=== PATIENT | female | born 1980 | race Caucasian/White ===

== ENCOUNTER 2017-03-11 09:36 | Day surgery (SDC) | payer OTHER ==
[2017-03-07 16:06] VITALS: BMI 32.9
--- NOTE | 2017-03-11 08:10 | HP ---
History & Physical Update - History History: No Change - Physical Physical: No Change - Assessment Assessment: No Change - Plan Plan: No Change
[~2017-03-11 09:36] MED LIST: IBUPROFEN 400 MG TABLET (FP) PO PRN; IBUPROFEN 800 MG/8 ML IJ IVPB PRN; LACTATED RINGERS SOLUTION 1,000 ML IV SCH
[2017-03-11] MEDS ORDERED: IBUPROFEN 800 MG/8 ML IJ IVPB ONE (10:06)
[2017-03-11] MEDS ORDERED: ACETAMINOPHEN INJECTION 100 ML IVPB ONE (10:07)
[2017-03-11] MEDS ORDERED: MIDAZOLAM HCL 2 MG/2 ML SINGLE DOSE VIAL ONE (10:27)
[2017-03-11] MEDS ORDERED: BUPIVACAINE HCL/PF 0.5% (5MG/ML) 10 ML VIAL ONE (10:27)
[2017-03-11] MEDS ORDERED: PROPOFOL 20 ML ONE (10:28)
[2017-03-11] MEDS ORDERED: ROCURONIUM BROMIDE 50 MG/5 ML VIAL ONE (11:53)
[2017-03-11] MEDS ORDERED: ePHEDrine SULFATE 50 MG/1 ML AMPULE ONE (12:02)
[2017-03-11] MEDS ORDERED: DEXAMETHASONE SOD PHOSPHATE 4 MG/1 ML VIAL ONE ×2 (12:18→12:19)
[2017-03-11] MEDS ORDERED: GLYCOPYRROLATE 0.2 MG/1 ML VIAL ONE (12:26)
[2017-03-11] MEDS ORDERED: NEOSTIGMINE METHYLSULFATE 0.5 MG/ML - 10 ML MDV ONE (12:26)
[2017-03-11] MEDS ORDERED: BUPIVACAINE HCL/PF 0.5% (5MG/ML) 10 ML VIAL IJ ONE (12:30)
--- NOTE | 2017-03-11 12:41 | OP ---
Operative Note - Note: Operative Date: 03/11/17 Pre-Operative Diagnosis: Elective sterilization Operation: Laparoscopic bilateral salpingectomy Post-Operative Diagnosis: Same as Pre-op Surgeon: Nina Burrell Call Center Analyst: Armando Silver Anesthesiologist/TILE SHADER: Sarbjit Mosqueda Anesthesia: General Specimens Removed: bilateral tubes Estimated Blood Loss (mls): 5 Fluid Volume Replaced (mls): 500
--- NOTE | 2017-03-11 12:42 | SURG ---
Surgery Auto Haulaway Driver Note Auto Haulaway Driver: Armando Silver PA-C Date of Service: 03/11/17 Diagnosis: Elective sterilization Procedure: Laparoscopic bilateral salpingectomy I was present for the entirety of the operative procedure. For further detail, please refer to operative report. Visit type - Case Type Case Type: Scheduled Admission - New patient This patient is new to me today: Yes Date on this admission: 03/11/17
[2017-03-11] MEDS ORDERED: ONDANSETRON 4 MG/2 ML VIAL IVPUSH PRN (12:51)
[2017-03-11] MEDS ORDERED: IBUPROFEN 400 MG TABLET (FP) PO ONE ×2 (15:24→15:25)
[2017-03-11 16:08] VITALS: BP 101/59; PULSE 60; TEMP 97.8
--- NOTE | 2017-03-12 09:24 | OP ---
DATE OF OPERATION: 03/11/2017 PREOPERATIVE DIAGNOSIS: Multiparity, voluntary sterilization. OPERATION: Laparoscopic bilateral salpingectomy. POSTOPERATIVE DIAGNOSES: Multiparity, voluntary sterilization and normal tubes and ovaries. SURGEON: César Blank MD PLANT PROTECTION GUARD: SULEMA Ken; unavailable. ANESTHESIA: General. ANESTHESIOLOGIST: Rhett Espinoza MD DESCRIPTION OF PROCEDURE: Patient was taken to the operating room and placed in dorsal lithotomy position, prepped and draped in the usual sterile fashion. A timeout was performed in accordance with hospital regulation. A Holloway catheter was inserted into the bladder. Umbilical incision was made with a scalpel. A Veress needle was inserted into the abdomen. Approximately 3-4 L of CO2 were insufflated within the abdomen. Veress needle was then removed, and a 5-mm trocar was inserted. Laparoscope and camera were attached. Visualization revealed normal tubes and ovaries. Two lower abdominal incisions on the left and right were made, and trocars were inserted under direct visualization. Grasper and LigaSure were attached, visualization. The right tube was grasped, and cautery and cutting of the fallopian tube on the right were done. Specimen was submitted to Pathology. Left tube was then grasped, and cautery and cutting of the left tube were done. Specimen was submitted to Pathology. All CO2 was removed. Incision was then closed using 4-0 Biosyn suture. After hemostasis was established, instrument count was correct. All instruments were removed. CO2 was removed from the abdomen. The incisions were then closed using 4-0 Biosyn suture in subcuticular fashion. Wound was washed and dressed. The patient had tolerated the procedure well. ESTIMATED BLOOD LOSS: 5 mL CÉSAR BLANK M.D. [id number]
--- NOTE | 2017-03-12 13:25 | PATH ---
Surgical Pathology Report Patient Name: HUEY JENKINS Med. Rec. #: [id number] /Age/Gender: 1980 (Age: 36) / F Account: [id number] Location: [facility] SUR[facility]ICAL Taken: 03/11/2017 Received: 03/11/2017 Reported: 03/12/2017 Physicians: Nina Burrell M.D. Specimen(s) Received A: RIGHT FALLOPIAN TUBE B: LEFT FALLOPIAN TUBE Clinical History Voluntary sterilization Final Diagnosis A. FALLOPIAN TUBE, RIGHT, SALPINGECTOMY: FIMBRIATED FALLOPIAN TUBE WITH COMPLETE CROSS SECTION. B. FALLOPIAN TUBE, LEFT, SALPINGECTOMY: FIMBRIATED FALLOPIAN TUBE WITH COMPLETE CROSS SECTION. Electronically Signed Anthony Andrade M.D. Gross Description A. Received in formalin labeled "right fallopian tube" is a 5.5 cm in length fimbriated portion of fallopian tube. The outer surface is murphy-pink and smooth. Sectioning reveals an unremarkable lumen. Dining Manager sections are submitted in 2 cassettes as follows: 1-fimbria; 2-cross sections of fallopian tube. B. Received in formalin labeled "left fallopian tube" is a 5 cm in length fimbriated fallopian tube. The outer surface is murphy-pink and smooth. Sectioning reveals unremarkable lumen. Dining Manager sections are submitted in 2 cassettes as follows: 1-fimbria; 2-cross sections of fallopian tube. /03/11/2017 saudi03/11/2017
== END 2017-03-11 16:05 | disposition home or self-care (01) ==
LOC: JASU-SURG 09:36
PROVIDERS: ATTEND Obstetrics & Gynecology
PROC: 0U574ZZ Destruction of Bilateral Fallopian Tubes, Percutaneous Endoscopic Approach (ICD-10-PCS; principal; 2017-03-11 11:00)
DX: Z30.2 Encounter for sterilization (principal)
CPT/HCPCS: 88302-TC; 94760